=== PATIENT | female | born 1995 | race Caucasian/White ===

== ENCOUNTER 2018-03-13 15:51 | Emergency (ER) | payer OTHER ==
[2018-03-13 15:53] VITALS: BP 161/101; TEMP 97.9; BMI 34.9
--- NOTE | 2018-03-13 17:13 | ED.PDOC ---
General ED Provider: Dr. MARINA APARICIO Chief Complaint: Ankle Pain/Injury Stated Complaint: Rt ankle and foot pain Time Seen by Physician: 17:00 Mode of Arrival: Walk-In Information Source: Patient Primary Care Provider: ANNAMARIE MAXWELL Sepsis Protocol: For patient's 13 years and over: Temp is 96.8 and below OR 101 and greater Pulse >90 BPM Resp >20/minute Acutely Altered Mental Status Are patient's symptoms suggestive of a new infection, such as: -Pneumonia -Skin, Soft Tissue -Endocarditis -UTI -Bone, Joint Infection -Implantable Device -Acute Abdominal Infection -Wound Infection -Meningitis -Blood Stream Catheter Infection -Unknown Musculoskeletal Complaint Exam - Ankle/Foot Complaint/Exam Location of Injury: Reports: Right, Ankle, Foot Mechanism of Injury: Reports: Trauma Onset/Duration: 1d Symptoms Are: Reports: Still present Onset of Pain: Reports: Immediate Initial Severity: Moderate Current Severity: Moderate Location: Reports: Diffuse Character: Reports: Dull (numbess foot and toes), Aching Alleviating: Reports: Rest Aggravating: Reports: Movement, Weight bearing Able to Bear Weight: Yes Associated Signs and Symptoms: Reports: Swelling, Bruising, Numbness, Tingling ( toes across top foot) Gout Risk Factors: Reports: None Related Surgical History: Reports: None Past Medical History - Past Medical History Last Menstrual Period: last month - Social History Smoking Status: Never smoker Hx Substance Use: No Alcohol Screening: None Course - Course Orders, Labs, Meds: Orders Category Date Time Status ANKLE, RIGHT MIN 3 VIEWS Stat RADS 03/13/18 17:10 Completed FOOT, RIGHT 3 VIEWS Stat RADS 03/13/18 17:34 Completed Vital Signs: Temp Pulse Resp BP Pulse Ox 03/13/18 15:51 97.9 F 103 H 18 161/101 H 97 Departure - Departure Time of Disposition: 18:40 Disposition: HOME SELF-CARE Discharge Problem: Moderate ankle sprain Instructions: Ankle Sprain (ED), Ankle Stirrup Splint (ED) Condition: Fair Pt referred to PMD for follow-up: Yes (see pcp or ortho in next 3 days) IPMP verified?: No Additional Instructions: Ice ELevate Air Cast Splint Crutches to minimize weight bearing ambulation Advil 600 mg 4 times daily as Allergies/Adverse Reactions: Allergies No Known Allergies Allergy (Verified 03/13/18 15:53) Home Medications: Ambulatory Orders Norethindrone-E.estradiol-Iron [Minastrin 24 Fe Chewable Tab] 1 each PO DAILY Disposition Discussed With: Patient
--- NOTE | 2018-03-13 17:54 | DI ---
EXAM: Right ankle three views HISTORY: Injury COMPARISON: None. FINDINGS: The ankle mortise and talar dome are intact. There is no acute fracture or dislocation.. The surrounding soft tissues are unremarkable. IMPRESSION: No acute findings
--- NOTE | 2018-03-13 17:55 | DI ---
EXAM: Right foot three views HISTORY: Injury COMPARISON: None. FINDINGS: There is no acute fracture or dislocation. The surrounding soft tissues are unremarkable. IMPRESSION: No acute findings
== END 2018-03-13 19:15 | disposition home or self-care (01) ==
LOC: ED 15:51
DX: M25.571 Pain in right ankle and joints of right foot (principal); S93.401A Sprain of unspecified ligament of right ankle, initial encounter
CPT/HCPCS: 99282